=== PATIENT | female | born 2000 | race Caucasian/White ===

== ENCOUNTER 2023-07-25 17:34 | Emergency (ER) | payer SELFPAY ==
[2023-07-25] MEDS: Acetaminophen/oxyCODONE 325-5 MG Tab PO ONE (19:53)
== END 2023-07-25 20:14 | disposition home or self-care (01) ==
LOC: MW.ED 17:34
DX: S62.91XA Unspecified fracture of right hand, initial encounter for closed fracture (principal); W22.8XXA Striking against or struck by other objects, initial encounter; Y92.838 Other recreation area as the place of occurrence of the external cause
CPT/HCPCS: 29125; 73130; 99283; A9270